=== PATIENT | female | born 1970 | race Caucasian/White ===

== ENCOUNTER → 2020-11-21 15:01 | Outpatient (BNVA) | payer OTHER, SELFPAY | PROVIDERS: Visit Provider Emergency Medicine | DX: Z20.822 Contact with and (suspected) exposure to COVID-19 (principal) | CPT/HCPCS: 87635 ==

== ENCOUNTER 2021-03-14 16:37 | Inpatient (IN) | payer OTHER, SELFPAY ==
[2021-03-14] VITALS (8 sets, daily range): BP systolic 114–144; BP diastolic 73–74; PULSE 66–98; RESP 18–30; TEMP 36.3–37.1; O2SAT 80–96; BMI 26.6
--- NOTE | 2021-03-14 16:52 | XRR_ITS ---
PROCEDURE INFORMATION: Exam: XR Chest Exam date and time: 03/14/2021 4:52 PM Age: 50 years old Clinical indication: Shortness of breath; Additional info: Dyspnea TECHNIQUE: Imaging protocol: XR of the chest. Views: 1 view. COMPARISON: No relevant prior studies available. FINDINGS: Lungs: Bibasilar atelectasis versus mild infiltrate. Pleural spaces: Unremarkable. No pleural effusion. No pneumothorax. Heart/Mediastinum: Cardiomegaly. Bones/joints: Unremarkable. XR/XR chest 1V portable [id number] IMPRESSION: 1. Cardiomegaly. 2. Bibasilar atelectasis versus mild infiltrate. Radiation Dose CTDIVOL = (mGy): DLP = (mGy-cm)
--- NOTE | 2021-03-14 16:53 | ECG_ITS ---
[facility] Test Date: 2021-03-14 Pat Name: Ana Lilia Joseph Department: Room: Gender: Female Evening Anchor: : 1970 Requested By: Jose Sue Order Number: [id number] Reading MD: MISTY WOLFF Measurements Intervals [place] Rate: 91 P: 19 [place]: 148 QRS: -1 QRSD: 71 T: 5 QT: 334 QTc: 412 Interpretive Statements SINUS RHYTHM LOW QRS VOLTAGE IN PRECORDIAL LEADS [QRS DEFLECTION < 1.0 mV IN CHEST LEADS] ST DEVIATION AND MODERATE T-WAVE ABNORMALITY, CONSIDER ANTERIOR ISCHEMIA [-0.1+ mV T-WAVE IN V3/V4] No previous ECG available for comparison Electronically Signed On 03-16-2021 0:11:27 CDT by MISTY WOLFF [id number] f
[2021-03-14] MEDS: ipratropium-albuterol 3 mL Neb INHALATION ×3 (17:10→17:11)
--- NOTE | 2021-03-14 17:13 | W.ED.GENADLT ---
Documented by User: Jose Sue MD 03/21/21 22:42 HPI - General Adult General: Chief complaint: Shortness of Breath/Dyspnea Stated complaint: TROUBLE BREATHING Time Seen by Provider: 03/14/21 16:52 History of Present Illness: HPI narrative: Patient is a 50-year-old female with a history of focal, COPD, recurrent pneumonia who presents the emergency room for 2 days of worsening dyspnea and wheezing. Patient tells me that she was at home when she noticed that she has worsening difficulty breathing and ear tightness. Patient denies any sputum,, fever but however report significant chills. Patient tells me that in the past whenever she has these episodes, she usually has pneumonia. Patient says that previously she was on home oxygen, is currently not on it. On arrival, patient was noted to be satting 80% on room air. Patient has not had her Covid vaccines yet. Patient has any chest pain, abdominal complaints, complaints at this time. Onset: 2 days acutely Duration:2 days Location:home Severity:moderate/severe Review of Systems Narrative: Constitutional: No fever, no chills. HEENT: No vision changes CV: No chest pain, no palpitations PULM: no cough, +dyspnea/wheezing GI: No abdominal pain, no N/V/D. : No dysuria MSKEL: No muscle pain SKIN: No new rashes, no lesions. NEURO: No headache, no focal weakness. HEME: No visible bruises PSYCH: Normal mood PFS ED PFSH: Medical History (Updated 03/18/21 @ 00:01 by ) COPD (chronic obstructive pulmonary disease) 5 History of stress test (~2004) negative, declined catheterization at time due to potential risks of procedure but reports doctors wanted to perform Hyperlipidemia Nicotine dependence, cigarettes, with other nicotine-induced disorders Surgical History (Updated 03/14/21 @ 20:56 by Dee Barba MD) History of hysterectomy Family History (Updated 03/14/21 @ 20:56 by Dee Barba MD) Father CAD (coronary artery disease) in his 60s from heart disease Mother Lung disease Social History (Updated 03/14/21 @ 20:57 by Dee Barba MD) Smoking and tobacco status: current every day smoker Alcohol intake: never Lives independently: Yes Household members: other Details: mother Physical Exam Narrative: EXAM NARRATIVE: Head: Atraumatic Eyes: PERRL, conjunctiva without injection ENT: Mucous membrane moist NECK: Supple, ROM intact LUNGS: + Lung tightness, plus bilateral wheezing, moderate accessory muscle use, patient speaking full sentences CV: RRR ABDOMEN: Soft, nontender in all quadrants EXTREMITY: Normal ROM SKIN: No rash or erythema NEURO: Awake and alert, no focal motor deficits PSYCH: Normal mood and affect Course Vital Signs: Vital signs: Vital Signs Temperature 97.9 F 03/17/21 15: Pulse Rate 54 L 03/17/21 15:01 Respiratory Rate 16 03/17/21 15: Blood Pressure 137/80 03/17/21 15: Pulse Oximetry 92 03/17/21 15:01 MDM - General Adult MDM Narrative: Medical decision making narrative: Patient is a 50-year-old female with history of COPD, pneumonia who presents the emergency room for evaluation acute dyspnea x2 days. On exam, patient satting at 80% on room air. Patient is noted to have tight airspace, plus wheezing bilaterally. Patient has mild increased work of breathing. Patient was placed immediately on 6 L oxygen with improvement in O2 sat to 95%. Work-up: CBC, BMP, proBNP, troponin, EKG, Covid, XR chest Intervention: DuoNeb, methylprednisolone Lab Data: Labs: Lab Results 03/14/21 03/14/21 03/14/21 17:06 17:06 17:06 WBC 17.4 10^3/uL H 10 ^3/uL (4.0-10.0) RBC 5.52 10^6/uL H 10 ^6/uL (4.1-5.3) Hgb 15.8 g/dL H g/dL (11.5-15.3) Hct 48.3 % H % (37.0-47.0) MCV 87.5 fl fl (81-99) MCH 28.6 pg pg (28.0-34.0) MCHC 32.7 g/dL g/dL (30.0-36.0) RDW 13.1 % % (12.1-15.1) Plt Count 372 10^3/cmm 10^3 /cmm (130-400) MPV 9.8 fL fL (7.4-10.4) Neut % (Auto) 70.7 % % Lymph % (Auto) 19.1 % % [place] % (Auto) 6.0 % % Eos % (Auto) 3.2 % % Baso % (Auto) 0.5 % % Neut # (Auto) 12.33 10^3/uL H 1 0^3/uL (1.8-7.7) Lymph # (Auto) 3.3 10^3/uL 10^3/ uL (0.8-4.8) [place] # (Auto) 1.0 10^3/uL H 10^ 3/uL (0.2-0.9) Eos # (Auto) 0.6 10^3/uL 10^3/ uL (0.0-0.8) Baso # (Auto) 0.1 10^3/uL 10^3/ uL (0.0-0.1) Nucleated RBC % (a uto) 0 % % Nucleated RBCs # 0.0 /100WBC /100W BC Specimen Type Sample Site ABG pH ABG pCO2 ABG pO2 ABG HCO3 ABG Base Excess Jose Alejandro Test Hematocrit O2 Delivery Device O2 Liters/Min Director Broadcast ID Sodium 139 mmol/L mmol/L (136-145) Potassium 4.1 mmol/L mmol/L (3.5-5.1) Chloride 101 mmol/L mmol/L (98-107) Carbon Dioxide 23 mmol/L mmol/L (22-29) Anion Gap 19.1 H (5-19) BUN 13 mg/dL mg/dL (6-20) Creatinine 0.5 mg/dL mg/dL (0.5-0.9) GFR Calculation 129.6 mL/min mL/m in (90-130) Glucose 103 mg/dL mg/dL (65-115) Calculated Osmolal ity 288 mOsm/kg mOsm/ kg (285-295) Lactic Acid Calcium 9.5 mg/dL mg/dL (8.5-10.5) Ferritin Troponin T Baselin e 7 ng/L ng/L (0-10) Troponin T 120 Min [place] Troponin T C-Reactive Protein NT-Pro-B Natriuret Pep 64 pg/mL pg/mL (0-125) Procalcitonin Nasal/Oral COVID-1 9 PCR SARS-CoV-2 RNA (RT -PCR) SARS-CoV-2 Ag (Rap id) 10/03/14/21 03/14/21 17:06 17:21 18:41 WBC RBC Hgb Hct MCV MCH MCHC RDW Plt Count MPV Neut % (Auto) Lymph % (Auto) [place] % (Auto) Eos % (Auto) Baso % (Auto) Neut # (Auto) Lymph # (Auto) [place] # (Auto) Eos # (Auto) Baso # (Auto) Nucleated RBC % (a uto) Nucleated RBCs # Specimen Type Arterial Sample Site Radial, left ABG pH 7.42 (7.35-7.45) ABG pCO2 39.1 mmHg mmHg (35-45) ABG pO2 38.3 mmHg L* mmHg (80.0-100.0) ABG HCO3 25.4 mmol/L mmol/ L (22-26) ABG Base Excess 0.9 mmol/L mmol/L (-2.0-2.0) Jose Alejandro Test Pos Hematocrit 48.6 % H % (37-47) O2 Delivery Device Nc O2 Liters/Min 6.0 % % Director Broadcast ID Cak Sodium Potassium Chloride Carbon Dioxide Anion Gap BUN Creatinine GFR Calculation Glucose Calculated Osmolal ity Lactic Acid Calcium Ferritin 147 ng/mL ng/mL (15-150) Troponin T Baselin e Troponin T 120 Min [place] Troponin T C-Reactive Protein 25.7 mg/L H mg/L (0.0-4.9) NT-Pro-B Natriuret Pep Procalcitonin 0.04 ng/mL ng/mL (0-0.5) Nasal/Oral COVID-1 9 PCR Cancelled SARS-CoV-2 RNA (RT -PCR) SARS-CoV-2 Ag (Rap id) 03/14/21 03/14/21 03/14/21 18:41 18:41 18:41 WBC RBC Hgb Hct MCV MCH MCHC RDW Plt Count MPV Neut % (Auto) Lymph % (Auto) [place] % (Auto) Eos % (Auto) Baso % (Auto) Neut # (Auto) Lymph # (Auto) [place] # (Auto) Eos # (Auto) Baso # (Auto) Nucleated RBC % (a uto) Nucleated RBCs # Specimen Type Sample Site ABG pH ABG pCO2 ABG pO2 ABG HCO3 ABG Base Excess Jose Alejandro Test Hematocrit O2 Delivery Device O2 Liters/Min Director Broadcast ID Sodium Potassium Chloride Carbon Dioxide Anion Gap BUN Creatinine GFR Calculation Glucose Calculated Osmolal ity Lactic Acid Calcium Ferritin Troponin T Baselin e Troponin T 120 Min [place] Troponin T C-Reactive Protein NT-Pro-B Natriuret Pep Procalcitonin Nasal/Oral COVID-1 9 PCR Not detected SARS-CoV-2 RNA (RT -PCR) Cancelled SARS-CoV-2 Ag (Rap id) Negative (Negative) 03/14/21 03/14/21 19:08 19:08 WBC RBC Hgb Hct MCV MCH MCHC RDW Plt Count MPV Neut % (Auto) Lymph % (Auto) [place] % (Auto) Eos % (Auto) Baso % (Auto) Neut # (Auto) Lymph # (Auto) [place] # (Auto) Eos # (Auto) Baso # (Auto) Nucleated RBC % (a uto) Nucleated RBCs # Specimen Type Sample Site ABG pH ABG pCO2 ABG pO2 ABG HCO3 ABG Base Excess Jose Alejandro Test Hematocrit O2 Delivery Device O2 Liters/Min Director Broadcast ID Sodium Potassium Chloride Carbon Dioxide Anion Gap BUN Creatinine GFR Calculation Glucose Calculated Osmolal ity Lactic Acid 2.5 mmol/L H mmol /L (0.5-2.2) Calcium Ferritin Troponin T Baselin e Troponin T 120 Min [place] 6.09 ng/L ng/L (0-10) Delta Troponin T -0.91 ABS# L ABS# (0-10) C-Reactive Protein NT-Pro-B Natriuret Pep Procalcitonin Nasal/Oral COVID-1 9 PCR SARS-CoV-2 RNA (RT -PCR) SARS-CoV-2 Ag (Rap id) Imaging Data^: Other Imaging: Radiologist's impression: [address] [id number] ReportSigned Patient: Jessica Joseph #: [id number]: 1970Acct#:[id number]/Sex: 50 / FADM Date: 03/14/21Loc: ERRoom/Bed:Attending Dr: Ordering Provider/Ordering MD: Jose Sue MD Date of Service: 03/14/21 Procedure(s): XR chest 1V portable [id number] Accession Number(s): [id number] Report Number: [id number] PROCEDURE INFORMATION: Exam: XR Chest Exam date and time: 03/14/2021 4:52 PM Age: 50 years old Clinical indication: Shortness of breath; Additional info: Dyspnea TECHNIQUE: Imaging protocol: XR of the chest. Views: 1 view. COMPARISON: No relevant prior studies available. FINDINGS: Lungs: Bibasilar atelectasis versus mild infiltrate. Pleural spaces: Unremarkable. No pleural effusion. No pneumothorax. Heart/Mediastinum: Cardiomegaly. Bones/joints: Unremarkable. XR/XR chest 1V portable [id number] IMPRESSION: 1. Cardiomegaly. 2. Bibasilar atelectasis versus mild infiltrate. Radiation Dose CTDIVOL = (mGy): DLP = (mGy-cm) Dictated By:Fernie Siu MDSigned By:Fernie Siu MDSigned Date/Time:03/14/21 1733DD/ 51 Discharge Plan Discharge Patient Disposition: Admitted As Inpatient Admit Provider: Dee Barba Clinical Impression: Acute dyspnea, Acute exacerbation of chronic obstructive pulmonary disease, Acute hypoxemic respiratory failure Condition: Stable Discharge Diet: Cardiac and Low Fat Discharge Activity: Resume usual activity Coding Level of Care Code ED Cement Handler for Chg Fwd Documented by User: Lawson Gonzales DO 03/14/21 21:14 HPI - General Adult General: Chief complaint: Shortness of Breath/Dyspnea Stated complaint: TROUBLE BREATHING Time Seen by Provider: 03/14/21 16:52 PFSH ED PFSH: Medical History (Updated 03/18/21 @ 00:01 by ) COPD (chronic obstructive pulmonary disease) 5 History of stress test (~2004) negative, declined catheterization at time due to potential risks of procedure but reports doctors wanted to perform Hyperlipidemia Nicotine dependence, cigarettes, with other nicotine-induced disorders Surgical History (Updated 03/14/21 @ 20:56 by Dee Barba MD) History of hysterectomy Family History (Updated 03/14/21 @ 20:56 by Dee Barba MD) Father CAD (coronary artery disease) in his 60s from heart disease Mother Lung disease Social History (Updated 03/14/21 @ 20:57 by Dee Barba MD) Smoking and tobacco status: current every day smoker Alcohol intake: never Lives independently: Yes Household members: other Details: mother Course Consultations: Consultation #1: willi Vital Signs: Vital signs: Vital Signs Temperature 97.9 F 03/17/21 15:01 Pulse Rate 54 L 03/17/21 15:01 Respiratory Rate 16 03/17/21 15:01 Blood Pressure 137/80 03/17/21 15:01 Pulse Oximetry 92 03/17/21 15:01 MDM - General Adult MDM Narrative: Medical decision making narrative: 50-year-old female checked out to me by Dr. Sue at shift change. This lady has a significant oxygen demand and she is tachycardic currently she is satting 93% on high flow nasal cannula. She is much more comfortable. Chest x-ray was negative, but CTA reveals groundglass infiltrates. No PE. She received Solu-Medrol here. Her rapid COVID-19 is negative, PCR is pending CT however is suspicious. She is a nonvaccinated patient she will be admitted for hypoxic respiratory failure pneumonitis Lab Data: Labs: Lab Results 03/14/21 03/14/21 03/14/21 17:06 17:06 17:06 WBC 17.4 10^3/uL H 10 ^3/uL (4.0-10.0) RBC 5.52 10^6/uL H 10 ^6/uL (4.1-5.3) Hgb 15.8 g/dL H g/dL (11.5-15.3) Hct 48.3 % H % (37.0-47.0) MCV 87.5 fl fl (81-99) MCH 28.6 pg pg (28.0-34.0) MCHC 32.7 g/dL g/dL (30.0-36.0) RDW 13.1 % % (12.1-15.1) Plt Count 372 10^3/cmm 10^3 /cmm (130-400) MPV 9.8 fL fL (7.4-10.4) Neut % (Auto) 70.7 % % Lymph % (Auto) 19.1 % % [place] % (Auto) 6.0 % % Eos % (Auto) 3.2 % % Baso % (Auto) 0.5 % % Neut # (Auto) 12.33 10^3/uL H 1 0^3/uL (1.8-7.7) Lymph # (Auto) 3.3 10^3/uL 10^3/ uL (0.8-4.8) [place] # (Auto) 1.0 10^3/uL H 10^ 3/uL (0.2-0.9) Eos # (Auto) 0.6 10^3/uL 10^3/ uL (0.0-0.8) Baso # (Auto) 0.1 10^3/uL 10^3/ uL (0.0-0.1) Nucleated RBC % (a uto) 0 % % Nucleated RBCs # 0.0 /100WBC /100W BC Specimen Type Sample Site ABG pH ABG pCO2 ABG pO2 ABG HCO3 ABG Base Excess Jose Alejandro Test Hematocrit O2 Delivery Device O2 Liters/Min Director Broadcast ID Sodium 139 mmol/L mmol/L (136-145) Potassium 4.1 mmol/L mmol/L (3.5-5.1) Chloride 101 mmol/L mmol/L (98-107) Carbon Dioxide 23 mmol/L mmol/L (22-29) Anion Gap 19.1 H (5-19) BUN 13 mg/dL mg/dL (6-20) Creatinine 0.5 mg/dL mg/dL (0.5-0.9) GFR Calculation 129.6 mL/min mL/m in (90-130) Glucose 103 mg/dL mg/dL (65-115) Calculated Osmolal ity 288 mOsm/kg mOsm/ kg (285-295) Lactic Acid Calcium 9.5 mg/dL mg/dL (8.5-10.5) Ferritin Troponin T Baselin e 7 ng/L ng/L (0-10) Troponin T 120 Min [place] Troponin T C-Reactive Protein NT-Pro-B Natriuret Pep 64 pg/mL pg/mL (0-125) Procalcitonin Nasal/Oral COVID-1 9 PCR SARS-CoV-2 RNA (RT -PCR) SARS-CoV-2 Ag (Rap id) 10/03/14/21 03/14/21 17:06 17:21 18:41 WBC RBC Hgb Hct MCV MCH MCHC RDW Plt Count MPV Neut % (Auto) Lymph % (Auto) [place] % (Auto) Eos % (Auto) Baso % (Auto) Neut # (Auto) Lymph # (Auto) [place] # (Auto) Eos # (Auto) Baso # (Auto) Nucleated RBC % (a uto) Nucleated RBCs # Specimen Type Arterial Sample Site Radial, left ABG pH 7.42 (7.35-7.45) ABG pCO2 39.1 mmHg mmHg (35-45) ABG pO2 38.3 mmHg L* mmHg (80.0-100.0) ABG HCO3 25.4 mmol/L mmol/ L (22-26) ABG Base Excess 0.9 mmol/L mmol/L (-2.0-2.0) Jose Alejandro Test Pos Hematocrit 48.6 % H % (37-47) O2 Delivery Device Nc O2 Liters/Min 6.0 % % Director Broadcast ID Cak Sodium Potassium Chloride Carbon Dioxide Anion Gap BUN Creatinine GFR Calculation Glucose Calculated Osmolal ity Lactic Acid Calcium Ferritin 147 ng/mL ng/mL (15-150) Troponin T Baselin e Troponin T 120 Min [place] Troponin T C-Reactive Protein 25.7 mg/L H mg/L (0.0-4.9) NT-Pro-B Natriuret Pep Procalcitonin 0.04 ng/mL ng/mL (0-0.5) Nasal/Oral COVID-1 9 PCR Cancelled SARS-CoV-2 RNA (RT -PCR) SARS-CoV-2 Ag (Rap id) 03/14/21 03/14/21 03/14/21 18:41 18:41 18:41 WBC RBC Hgb Hct MCV MCH MCHC RDW Plt Count MPV Neut % (Auto) Lymph % (Auto) [place] % (Auto) Eos % (Auto) Baso % (Auto) Neut # (Auto) Lymph # (Auto) [place] # (Auto) Eos # (Auto) Baso # (Auto) Nucleated RBC % (a uto) Nucleated RBCs # Specimen Type Sample Site ABG pH ABG pCO2 ABG pO2 ABG HCO3 ABG Base Excess Jose Alejandro Test Hematocrit O2 Delivery Device O2 Liters/Min Director Broadcast ID Sodium Potassium Chloride Carbon Dioxide Anion Gap BUN Creatinine GFR Calculation Glucose Calculated Osmolal ity Lactic Acid Calcium Ferritin Troponin T Baselin e Troponin T 120 Min [place] Troponin T C-Reactive Protein NT-Pro-B Natriuret Pep Procalcitonin Nasal/Oral COVID-1 9 PCR Not detected SARS-CoV-2 RNA (RT -PCR) Cancelled SARS-CoV-2 Ag (Rap id) Negative (Negative) 03/14/21 03/14/21 19:08 19:08 WBC RBC Hgb Hct MCV MCH MCHC RDW Plt Count MPV Neut % (Auto) Lymph % (Auto) [place] % (Auto) Eos % (Auto) Baso % (Auto) Neut # (Auto) Lymph # (Auto) [place] # (Auto) Eos # (Auto) Baso # (Auto) Nucleated RBC % (a uto) Nucleated RBCs # Specimen Type Sample Site ABG pH ABG pCO2 ABG pO2 ABG HCO3 ABG Base Excess Jose Alejandro Test Hematocrit O2 Delivery Device O2 Liters/Min Director Broadcast ID Sodium Potassium Chloride Carbon Dioxide Anion Gap BUN Creatinine GFR Calculation Glucose Calculated Osmolal ity Lactic Acid 2.5 mmol/L H mmol /L (0.5-2.2) Calcium Ferritin Troponin T Baselin e Troponin T 120 Min [place] 6.09 ng/L ng/L (0-10) Delta Troponin T -0.91 ABS# L ABS# (0-10) C-Reactive Protein NT-Pro-B Natriuret Pep Procalcitonin Nasal/Oral COVID-1 9 PCR SARS-CoV-2 RNA (RT -PCR) SARS-CoV-2 Ag (Rap id) Discharge Plan Discharge Patient Disposition: Admitted As Inpatient Admit Provider: Dee Barba Clinical Impression: Acute dyspnea, Acute exacerbation of chronic obstructive pulmonary disease, Acute hypoxemic respiratory failure Condition: Stable Discharge Diet: Cardiac and Low Fat Discharge Activity: Resume usual activity Coding Level of Care Code ED Cement Handler for Luciag Annette
--- NOTE | 2021-03-14 17:24 | CTR_ITS ---
PROCEDURE INFORMATION: Exam: CTA Chest With Contrast Exam date and time: 03/14/2021 5:24 PM Age: 50 years old Clinical indication: Shortness of breath; Patient HX: SOB and tachy; Additional info: Pe TECHNIQUE: Imaging protocol: Computed tomographic angiography of the chest with contrast. 3D rendering (Not supervised by radiologist): MIP and/or 3D reconstructed images were created by the technologist. Radiation optimization: All CT scans at this facility use at least one of these dose optimization techniques: automated exposure control; mA and/or kV adjustment per patient size (includes targeted exams where dose is matched to clinical indication); or iterative reconstruction. Contrast material: OMNI 350; Contrast volume: 66 ml; Contrast route: INTRAVENOUS (IV); COMPARISON: CR (CHEST, ) 03/14/2021 5:03 PM RADIATION DOSE METRICS: Total DLP (mGy-cm): 511.46 FINDINGS: Pulmonary arteries: Normal. No pulmonary emboli. Aorta: Unremarkable. No aortic aneurysm. No aortic dissection. Lungs: Multifocal bilateral pulmonary ground-glass opacities. Pleural spaces: Unremarkable. No pneumothorax. No pleural effusion. Heart: Unremarkable. No cardiomegaly. No pericardial effusion. Lymph nodes: Unremarkable. No enlarged lymph nodes. Bones/joints: Unremarkable. No acute fracture. Soft tissues: Unremarkable. CT/CT angio chest PE protcl [id number] IMPRESSION: There are multifocal bilateral pulmonary ground-glass opacities.Imaging features can be seen with COVID-19 pneumonia, though are nonspecific and can occur with a variety of infectious and noninfectious processes. (Reference: Alistair) REFERENCES: Alistair Lambert, et al., Radiological Society of [place] Expert Consensus Statement on Reporting Chest CT Findings Related to COVID-19. Endorsed by the Society of Thoracic Radiology, the [place], and RSNA. Published August 08, 2019. Radiation Dose CTDIVOL = (mGy): DLP = 511.46 (mGy-cm)
[2021-03-14 17:31] LABS: Basophils # 0.1 10^3/uL (0.0-0.1); Basophils % 0.5 %; Eosinophils # 0.6 10^3/uL (0.0-0.8); Eosinophils % 3.2 %; Hematocrit 48.3 % (37.0-47.0); Hemoglobin 15.8 g/dL (11.5-15.3); Lymphocytes # 3.3 10^3/uL (0.8-4.8); Lymphocytes % 19.1 %; Mean Corpuscular HGB Conc 32.7 g/dL (30.0-36.0); Mean Corpuscular Hemoglobin 28.6 pg (28.0-34.0); Mean Corpuscular Volume 87.5 fl (81-99); Mean Platelet Volume 9.8 fL (7.4-10.4); Neutrophils # 12.33 10^3/uL (1.8-7.7); Neutrophils % 70.7 %; Nucleated Red Blood Cells % 0 %; Platelet Count 372 10^3/cmm (130-400); Red Blood Count 5.52 10^6/uL (4.1-5.3); Red Cell Distribution Width 13.1 % (12.1-15.1); White Blood Count 17.4 10^3/uL (4.0-10.0)
[2021-03-14 17:32] LABS: ABG PCO2 39.1 mmHg (35-45); ABG PH Result 7.42 (7.35-7.45); Arterial Blood Gas Hematocrit 48.6 % (37-47); Base Excess ABG 0.9 mmol/L (-2.0-2.0); Blood Gas Allen Test Pos; Blood Gas Operator Identificat CAK; Blood Gas Sample Site Radial, left; Blood Gas Sample Type Arterial; HCO3 ABG 25.4 mmol/L (22-26); Oxygen Device NC; PO2 ABG 38.3 mmHg (80.0-100.0)
[2021-03-14 17:48] LABS: Troponin(5th) Baseline 7 ng/L (0-10)
[2021-03-14 17:57] LABS: Blood Urea Nitrogen 13 mg/dL (6-20); Calcium 9.5 mg/dL (8.5-10.5); Carbon Dioxide 23 mmol/L (22-29); Chloride 101 mmol/L (98-107); Glomerular Filtration Rate 129.6 mL/min (90-130); Glucose 103 mg/dL (65-115); NT Pro B Type Natriuretic Pept 64 pg/mL (0-125); Osmolality Calculated 288 mOsm/kg (285-295); Sodium 139 mmol/L (136-145)
[2021-03-14] MEDS: iohexol 350 mg/mL 100 mL Btl IV (18:16)
[2021-03-14 18:20] LABS: Anion Gap 19.1 (5-19); Potassium 4.1 mmol/L (3.5-5.1)
--- NOTE | 2021-03-14 18:53 | ECG_ITS ---
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: : 1970 Requested By: Jose Sue Order Number: [id number] Reading MD: MISTY WOLFF Measurements Intervals [place] Rate: 85 P: 37 AR: 174 QRS: -1 QRSD: 75 T: 19 QT: 372 QTc: 444 Interpretive Statements SINUS RHYTHM POSSIBLE INFERIOR MYOCARDIAL INFARCTION , PROBABLY OLD [30 ms Q WAVE IN II/aVF] MODERATE T-WAVE ABNORMALITY, CONSIDER ANTERIOR ISCHEMIA [-0.1+ mV T-WAVE IN V3/V4] Compared to ECG 03/14/2021 17:22:14 Myocardial infarct finding now present T-wave abnormality still present Possible ischemia still present Electronically Signed On 03-16-2021 0:17:33 CDT by MISTY WOLFF [id number]
[2021-03-14 19:08] LABS: SARS Covid-2 Antigen Negative (Negative)
[2021-03-14 19:32] LABS: Troponin 5 2HR 6.09 ng/L (0-10)
[2021-03-14 19:33] LABS: Troponin 5 2HR Delta -0.91 ABS# (0-10)
[2021-03-14 19:34] LABS: Lactic Sepsis W/Reflex 2.5 mmol/L (0.5-2.2)
--- NOTE | 2021-03-14 19:55 | PM.HP ---
Providers/Chief Complaint Admitting Physician: Dee Barba Primary Care Provider: None Chief Complaint: TROUBLE BREATHING History of Present Illness Ana Lilia Joseph is a 50 year old female who presented to the emergency room with chief complaint of increasing difficulty breathing. Symptoms have been present for a couple of months. She thought she may have had Covid in November but Covid testing was negative. She has had increasing difficulty breathing, wheezing and cough most of the time unproductive since then. It has progressively worsened over the last week or 2 to the point that she was not able to function well at work. She works at [employer] in [employer]. She feels like she has chest congestion but is not able to cough much of anything up. She has had some posttussive emesis that has been productive primarily of thick mucousy material along with bile. No blood has been noted. She has had some subjective fevers, general malaise, body aches and fatigue. She has a history of COPD and at one point in time I been told that she needed home oxygen but did not think that she really did. She has been on Symbicort and albuterol in the past. She does not currently have a primary care provider. Upon presentation to the emergency room she was significantly hypoxic with saturations in the 80s. ABG showed a PO2 of 38. pH was 7.42. She received breathing treatment and steroids. Chest x-ray showed some mild opacities. CTA of the chest did not reveal evidence of PE but she was found to have bilateral groundglass opacities. Rapid Covid was negative. She has not had a Covid vaccine. She has been treated with heated high flow with improvement in saturations. She is being admitted for further treatment and evaluation as indicated. Rapid Covid antigen was sent. She does not have any known Covid contacts. She lives in [place] with her mother. Her mother is not currently ill but does have chronic breathing problems. Review of Systems Const: Reports: fever(s), body aches, fatigue and malaise ENMT: Reports: dry mouth and nasal congestion; Denies: throat pain Card: Denies: chest pain, palpitations or edema Resp: Reports: dyspnea, non-productive cough, wheezing and chest congestion; Denies: productive cough, pain on inspiration or hemoptysis GI: Reports: nausea (post tussive) and vomiting (posttussive); Denies: abdominal pain, diarrhea, constipation or hematochezia : Denies: difficulty voiding Musc: Reports: other (various aches and pains, nothing acute) Skin/Breast: Denies: rash, pruritus or sores Neuro: Reports: headache(s); Denies: sensory changes or difficulty walking Psych: Reports: anxiety (with breathing difficulty) Chon/Lymph: Denies: easy bruising or easy bleeding Medications/Allergies Home Medications Medication Instructions Recorded Confirmed Last Taken Type No Known Home Medications 11/21/20 11/21/20 Unknown History Allergies Allergy/AdvReac Type Severity Reaction Status Date / Time aspirin Allergy Unknown Verified 11/21/20 13:46 Penicillins Allergy rash Verified 11/21/20 13:46 PFSH Acute PFSH: Medical History (Updated 03/14/21 @ 21:11 by Dee Barba MD) COPD (chronic obstructive pulmonary disease) 5 History of stress test (~2004) negative, declined catheterization at time due to potential risks of procedure but reports doctors wanted to perform Hyperlipidemia Nicotine dependence, cigarettes, with other nicotine-induced disorders Surgical History (Updated 03/14/21 @ 20:56 by Dee Barba MD) History of hysterectomy Family History (Updated 03/14/21 @ 20:56 by Dee Barba MD) Father CAD (coronary artery disease) in his 60s from heart disease Mother Lung disease Social History (Updated 03/14/21 @ 20:57 by Dee Barba MD) Smoking and tobacco status: current every day smoker Alcohol intake: never Substance/Drug Use: never Lives independently: Yes Household members: other Details: mother Vitals/I&O/Wt Last Vital Signs Temp 98.1 F 03/14/21 18:44 Pulse 74 03/14/21 18:44 Resp 22 H 03/14/21 18:44 Pulse Ox 93 03/14/21 18:44 Weight last 48 hrs Weight 77.111 kg Physical Exam Narrative: EXAM NARRATIVE: Constitutional: Awake and alert, cooperative, able to provide history HEENT: Normocephalic, atraumatic, pupils are equal, extraocular mitts intact, oropharynx is dry, heated high flow is in place Neck: Supple Respiratory: Bilateral wheezes and scattered crackles, no accessory muscle use noted Cardiovascular: Regular rate and rhythm, no murmurs Abdomen: Soft, nontender, positive bowel sounds Extremities: No pitting edema or calf tenderness Skin: Dry, no rashes Neuro: Speech clear, face symmetric, moves all extremities Psych: Normal affect Data : 03/14/21 17:06 03/14/21 17:06 Other Labs: Laboratory Results WBC 17.4 10^3/uL (4.0-10.0) H 03/14/21 17:06 RBC 5.52 10^6/uL (4.1-5.3) H 03/14/21 17:06 Hgb 15.8 g/dL (11.5-15.3) H 03/14/21 17:06 Hct 48.3 % (37.0-47.0) H 03/14/21 17:06 MCV 87.5 fl (81-99) 03/14/21 17:06 MCH 28.6 pg (28.0-34.0) 03/14/21 17:06 MCHC 32.7 g/dL (30.0-36.0) 03/14/21 17:06 RDW 13.1 % (12.1-15.1) 03/14/21 17:06 Plt Count 372 10^3/cmm (130-400) 03/14/21 17:06 MPV 9.8 fL (7.4-10.4) 03/14/21 17:06 Neut % (Auto) 70.7 % 03/14/21 17:06 Lymph % (Auto) 19.1 % 03/14/21 17:06 [place] % (Auto) 6.0 % 03/14/21 17:06 Eos % (Auto) 3.2 % 03/14/21 17:06 Baso % (Auto) 0.5 % 03/14/21 17:06 Neut # (Auto) 12.33 10^3/uL (1.8-7.7) H 03/14/21 17:06 Lymph # (Auto) 3.3 10^3/uL (0.8-4.8) 03/14/21 17:06 [place] # (Auto) 1.0 10^3/uL (0.2-0.9) H 03/14/21 17:06 Eos # (Auto) 0.6 10^3/uL (0.0-0.8) 03/14/21 17:06 Baso # (Auto) 0.1 10^3/uL (0.0-0.1) 03/14/21 17:06 Nucleated RBC % (auto) 0 % 03/14/21 17:06 Nucleated RBCs # 0.0 /100WBC 03/14/21 17:06 Specimen Type Arterial 03/14/21 17:21 Sample Site Radial, left 03/14/21 17:21 ABG pH 7.42 (7.35-7.45) 03/14/21 17:21 ABG pCO2 39.1 mmHg (35-45) 03/14/21 17:21 ABG pO2 38.3 mmHg (80.0-100.0) L* 03/14/21 17: ABG HCO3 25.4 mmol/L (22-26) 03/14/21 17:21 ABG Base Excess 0.9 mmol/L (-2.0-2.0) 03/14/21 17:21 Jose Alejandro Test Pos 03/14/21 17:21 Hematocrit 48.6 % (37-47) H 03/14/21 17:21 O2 Delivery Device Nc 03/14/21 17:21 O2 Liters/Min 6.0 % 03/14/21 17:21 Fixed Interest Dealer ID Cak 03/14/21 17:21 Sodium 139 mmol/L (136-145) 03/14/21 17:06 Potassium 4.1 mmol/L (3.5-5.1) 03/14/21 17:06 Chloride 101 mmol/L (98-107) 03/14/21 17:06 Carbon Dioxide 23 mmol/L (22-29) 03/14/21 17:06 Anion Gap 19.1 (5-19) H 03/14/21 17:06 BUN 13 mg/dL (6-20) 03/14/21 17:06 Creatinine 0.5 mg/dL (0.5-0.9) 03/14/21 17:06 GFR Calculation 129.6 mL/min (90-130) 03/14/21 17:06 Glucose 103 mg/dL (65-115) 03/14/21 17:06 Calculated Osmolality 288 mOsm/kg (285-295) 03/14/21 17:06 Lactic Acid 2.5 mmol/L (0.5-2.2) H 03/14/21 19:08 Calcium 9.5 mg/dL (8.5-10.5) 03/14/21 17:06 Troponin T Baseline 7 ng/L (0-10) 03/14/21 17:06 Troponin T 120 Minute 6.09 ng/L (0-10) 03/14/21 19:08 Delta Troponin T -0.91 ABS# (0-10) L 03/14/21 19:08 NT-Pro-B Natriuret Pep 64 pg/mL (0-125) 03/14/21 17:06 SARS-CoV-2 Ag (Rapid) Negative (Negative) 03/14/21 18:41 Impressions Chest X-Ray 03/14/21 16:52 IMPRESSION: 1. Cardiomegaly. 2. Bibasilar atelectasis versus mild infiltrate. Radiation Dose CTDIVOL = (mGy): DLP = (mGy-cm) Chest CTA 03/14/21 17:24 IMPRESSION: There are multifocal bilateral pulmonary ground-glass opacities.Imaging features can be seen with COVID-19 pneumonia, though are nonspecific and can occur with a variety of infectious and noninfectious processes. (Reference: Alistair) REFERENCES: Alitsair Lambert, et al., Radiological Society of [place] Expert Consensus Statement on Reporting Chest CT Findings Related to COVID-19. Endorsed by the Society of Thoracic Radiology, the [place] [employer], and RSNA. Published August 08, 2019. Radiation Dose CTDIVOL = (mGy): DLP = 511.46 (mGy-cm) Micro: Microbiology 03/14/21 19:08 Blood Culture - Preliminary Blood SPECIMEN COLLECTED 03/14/21 17:06 Blood Culture - Preliminary Blood SPECIMEN COLLECTED A&P Assessment and plan (1) Acute hypoxemic respiratory failure: Symptoms have been developing over the last couple of months and have acutely worsened in the last few days to the point that she has been unable to work. She has had some subjective fevers, difficult expectoration with primarily nonproductive cough, posttussive emesis, general aches and pains and malaise. Rapid Covid antigen is negative. She has groundglass opacities bilaterally which could be suggestive of Covid however she has leukocytosis without a lymphopenia. Symptoms have also been escalating over a couple of months. She is not Covid vaccinated and has not tested positive for Covid previously. Differential includes Covid or other viral infection and bacterial pneumonia, Legionella, among others. With unremarkable EKG, troponin and BNP do not currently suspect cardiac etiology of presentation. CTA was negative for PE. Status: Acute (2) Pneumonia: Patient reports that she gets pneumonia annually Status: Acute Qualifiers: Pneumonia type: due to unspecified organism Laterality: bilateral Lung location: lower lobe of lung Qualified Code(s): J18.9 - Pneumonia, unspecified organism (3) Acute exacerbation of chronic obstructive pulmonary disease: Status: Acute (4) Nicotine dependence, cigarettes, with other nicotine-induced disorders: Status: Acute (5) Hyperlipidemia: Status: Chronic Qualifiers: Hyperlipidemia type: unspecified Qualified Code(s): E78.5 - Hyperlipidemia, unspecified Additional A&P Information Mild lactic acid elevation, likely secondary to hypoxemia given clinical presentation Inpatient admission Continue heated high flow oxygen, weaning as able Rapid Covid was negative, Covid PCR has been sent Covid isolation until PCR is back Levaquin Systemic steroids Breathing treatments with inhaled steroids Flutter device Blood cultures were collected Check procalcitonin, CRP, ferritin and Legionella Nicotine patch if needed Check lipid panel since she reports a history of hyperlipidemia and has not seen a doctor for a couple of years Complete serial cardiac enzymes Lovenox for DVT prophylaxis Pepcid for GI prophylaxis Nicotine patch if needed Supportive care otherwise Anticipate will need oxygen upon disposition but otherwise disposition likely home Plans, findings and concerns including the possibility of Covid diagnosis among other types of pneumonia were discussed with patient and she was given an opportunity to ask questions Attestations Medical Necessity Statement*: Anticipated stay greater than 2 midnights in this patient presenting with increasing difficulty breathing over period of time to the point that she was unable to go to work. She was significantly hypoxic and is currently requiring heated high flow. Coding Level of Care Code Acute Clinical Informatics Manager for [facility] Diagnoses Acute hypoxemic respiratory failure J96.01 Pneumonia J18.9 Pneumonia type: due to unspecified organism Laterality: bilateral Lung location: lower lobe of lung Acute exacerbation of chronic obstructive pulmonary disease J44.1 Nicotine dependence, cigarettes, with other nicotine-induced disorders F17.218 Hyperlipidemia E78.5 Hyperlipidemia type: unspecified
[2021-03-14 20:58] LABS: Reflex Lactate Order REFLEX LACTIC ORDERD
--- NOTE | 2021-03-14 21:04 | PC.NURSE ---
tried to call report, RN not available
[2021-03-14 21:09] LABS: C Reactive Protein 25.7 mg/L (0.0-4.9); Ferritin 147 ng/mL (15-150)
[2021-03-14 21:14] LABS: Procalcitonin 0.04 ng/mL (0-0.5)
[2021-03-14] MEDS: levofloxacin-dextrose 5 % 750 MG/150 ML PREMIX 100 MG IV (21:32)
[2021-03-14] MEDS: enoxaparin 40 mg/0.4 mL Syringe SUBCUT (22:51)
--- NOTE | 2021-03-14 22:53 | ECG_ITS ---
[facility] Test Date: 2021-03-14 Pat Name: Ana Lilia Joseph Department: Room: 258 Gender: Female Operations [employer]: : 1970 Requested By: Jose Sue Order Number: [id number] Reading MD: MISTY WOLFF Measurements Intervals [place] Rate: 62 P: 38 IL: 176 QRS: 5 QRSD: 75 T: 15 QT: 454 QTc: 462 Interpretive Statements SINUS RHYTHM WITH SINUS ARRHYTHMIA NONSPECIFIC ST & T-WAVE ABNORMALITY Compared to ECG 03/14/2021 18:47:17 Myocardial infarct finding no longer present Possible ischemia no longer present T-wave abnormality still present Electronically Signed On 03-16-2021 0:16:58 CDT by MISTY WOLFF [id number]
[2021-03-15] VITALS (13 sets, daily range): BP systolic 101–128; BP diastolic 57–68; PULSE 56–94; RESP 16–22; TEMP 35.8–36.7; O2SAT 89–98
[2021-03-15] MEDS: ipratropium-albuterol 3 mL Neb INHALATION ×4 (03:18→21:40)
[2021-03-15 06:59] LABS: Basophils % 0.1 %; Hematocrit 44.6 % (37.0-47.0); Hemoglobin 14.5 g/dL (11.5-15.3); Lymphocytes # 1.1 10^3/uL (0.8-4.8); Lymphocytes % 11.3 %; Mean Corpuscular HGB Conc 32.5 g/dL (30.0-36.0); Mean Corpuscular Hemoglobin 29.1 pg (28.0-34.0); Mean Corpuscular Volume 89.4 fl (81-99); Mean Platelet Volume 9.5 fL (7.4-10.4); Monocytes # 0.2 10^3/uL (0.2-0.9); Monocytes % 1.7 %; Neutrophils # 8.37 10^3/uL (1.8-7.7); Neutrophils % 86.4 %; Nucleated Red Blood Cells % 0 %; Platelet Count 332 10^3/cmm (130-400); Red Blood Count 4.99 10^6/uL (4.1-5.3); Red Cell Distribution Width 13.2 % (12.1-15.1); White Blood Count 9.7 10^3/uL (4.0-10.0)
[2021-03-15 07:26] LABS: Chol HDL Ratio 5.23 mg/dL (0.0-4.40); Cholesterol 230 mg/dL (0-200); HDL Cholesterol 44 mg/dL (60-100); LDL Cholesterol Calculated 164 mg/dL (50-129); LDL HDL Ratio 3.73 RATIO (0.00-3.22); Triglycerides 111 mg/dL (0-150)
[2021-03-15 07:27] LABS: Anion Gap 17.2 (5-19); Blood Urea Nitrogen 13 mg/dL (6-20); Calcium 9.4 mg/dL (8.5-10.5); Carbon Dioxide 22 mmol/L (22-29); Chloride 102 mmol/L (98-107); Glucose 248 mg/dL (65-115); Osmolality Calculated 292 mOsm/kg (285-295); Potassium 4.2 mmol/L (3.5-5.1); Sodium 137 mmol/L (136-145)
[2021-03-15] MEDS: budesonide 0.5 mg/2 mL Neb INHALATION ×2 (08:36→21:40)
[2021-03-15] MEDS: famotidine 20 mg Tablet PO ×2 (10:50→17:16)
--- NOTE | 2021-03-15 21:06 | P.PN_ITS ---
Subjective Subjective: Interval history: Persistent hypoxia, desaturating to 87% on room air when to call for oxygen. Was patient return home, but agrees that should stay to complete work-up and treatment given new unexplained hypoxia, with history of recurrent pneumonias, protracted pulmonary problems. Has not seen a specialist in about 2 years, previously diagnosed by pulmonology with COPD per discussed with her grandmother specialist with CT angiogram indicated there is likely more going on than just the COPD. For now etiology not yet explained. Vitals/I&O/Wt Last Vital Signs Temp 97.7 F 03/15/21 20:00 Pulse 94 03/15/21 20:00 Resp 22 H 03/15/21 20:00 BP 117/57 03/15/21 20:00 Pulse Ox 89 L 03/15/21 20:00 03/15/21 03/15/21 03/15/21 06:59 14:59 22:59 Intake Total 390 / 390 240 / 240 240 / 480 Output Total 450 / 450 Balance -60 / -60 240 / 240 240 / 480 Weight last 48 hrs Weight 77.111 kg Physical Exam 2 Narrative: EXAM NARRATIVE: Sitting up in chair, bottom half dressed in street clothes. Const: COMMON NORMALS: no acute distress, patient oriented x3 and alert GENERAL APPEARANCE: cooperative ORIENTATION/CONSCIOUSNESS: Yes awake HENMT: COMMON NORMALS: oropharynx normal Neck/C-Spine: COMMON NORMALS: no JVD Resp: COMMON NORMALS: normal respiratory effort AUSCULTATION: wheezes and diminished lung sounds Cardio: COMMON NORMALS: no JVD, regular rhythm, S1 normal heart sound present, S2 normal heart sound present and No murmurs present (Cardio) RHYTHM: regular rhythm HEART SOUNDS: S1 normal heart sound present and S2 normal heart sound present GI: COMMON NORMALS: Normal to inspection, nondistended, normoactive bowel sounds present, Soft to palpation and non-tender PALPATION: Yes Soft to palpation Extremity: COMMON NORMALS: no joint enlargement and no pedal edema Neuro: COMMON NORMALS: patient oriented x3 and moves all extremities SENSORIUM/ORIENTATION: Yes alert Skin: COMMON NORMALS: no rashes or lesions noted GENERAL SKIN EXAM: no rashes or lesions noted Data : 03/15/21 06:37 03/15/21 06:37 Micro: Microbiology 03/14/21 19:08 Blood Culture - Preliminary Blood NEGATIVE TO DATE 03/14/21 17:06 Blood Culture - Preliminary Blood NEGATIVE TO DATE A&P Assessment and plan (1) Acute hypoxemic respiratory failure: Somewhat progressive symptoms, and reports history of recurrent pneumonias. Has not been to see the upholstery auto trimmer in 2 years. Previously diagnosed only with COPD. Discussed with her groundglass opacities, suspect these may be related to additional underlying process other than COPD. Currently pending additional work-up. Follow-up COVID-19 PCR. Requested urine bacterial antigens. Respiratory viral panel. Add galactomannan. Histoplasma antibody. Fungitell. With somewhat subacute/progressive onset, recurrent symptoms, discussed consideration if current presentation not explained by COVID-19 and other work- up currently in progress, of possible interstitial lung disease, hypersensitivity pneumonitis, additional possible etiologies for which may michelle efit from assessment by pulmonology, possibly during this admission depending on condition and if we are not finding good explanation for her symptoms. Empirically on Levaquin for now, although afebrile, without definitive consolidation and with normal procalcitonin. If alternative explanation becomes more likely, consider de-escalation. With component of COPD exacerbation, on steroids, nebs, inhaled steroid. Symptoms have been developing over the last couple of months and have acutely worsened in the last few days to the point that she has been unable to work. She has had some subjective fevers, difficult expectoration with primarily nonproductive cough, posttussive emesis, general aches and pains and malaise. Rapid Covid antigen is negative. She has groundglass opacities bilaterally which could be suggestive of Covid however she has leukocytosis without a lymphopenia. She is not Covid vaccinated and has not tested positive for Covid previously. Differential includes Covid or other viral infection and bacterial pneumonia, Legionella, among others. With unremarkable EKG, troponin and BNP do not currently suspect cardiac etiology of presentation. CTA was negative for PE. Status: Acute (2) Pneumonia: Patient reports that she gets pneumonia annually Status: Acute Qualifiers: Laterality: bilateral Lung location: lower lobe of lung Pneumonia type: due to unspecified organism Qualified Code(s): J18.9 - Pneumonia, unspecified organism (3) Acute exacerbation of chronic obstructive pulmonary disease: Status: Acute (4) Nicotine dependence, cigarettes, with other nicotine-induced disorders: Add nicotine lozenges Status: Acute (5) Hyperlipidemia: Status: Chronic Qualifiers: Hyperlipidemia type: unspecified Qualified Code(s): E78.5 - Hyperlipidemia, unspecified Attestations Medical Necessity Statement*: Continue admission for assessment management of new hypoxia, progressive atypical pneumonia. Coding Level of Care Code Acute [employer] Consultant for [facility] Fwd Exam Comprehensive Diagnoses Acute hypoxemic respiratory failure J96.01 Pneumonia J18.9 Laterality: bilateral Lung location: lower lobe of lung Pneumonia type: due to unspecified organism Acute exacerbation of chronic obstructive pulmonary disease J44.1 Nicotine dependence, cigarettes, with other nicotine-induced disorders F17.218 Hyperlipidemia E78.5 Hyperlipidemia type: unspecified
[2021-03-15] MEDS: levofloxacin-dextrose 5 % 750 MG/150 ML PREMIX 100 MG IV (22:27)
[2021-03-15] MEDS: enoxaparin 40 mg/0.4 mL Syringe SUBCUT (22:27)
[2021-03-16] VITALS (10 sets, daily range): BP systolic 106–118; BP diastolic 61–84; PULSE 56–81; RESP 14–18; TEMP 36.7–37; O2SAT 90–94
[2021-03-16] MEDS: ipratropium-albuterol 3 mL Neb INHALATION ×4 (03:32→20:43)
[2021-03-16 06:56] LABS: Alanine Aminotransferase 9 U/L (0-33); Albumin Level 3.6 g/dL (3.5-5.2); Alkaline Phosphatase 90 IU/L (35-105); Anion Gap 15.1 (5-19); Aspartate Amino Transferase 6 U/L (0-32); Blood Urea Nitrogen 22 mg/dL (6-20); Calcium 9.3 mg/dL (8.5-10.5); Carbon Dioxide 22 mmol/L (22-29); Chloride 104 mmol/L (98-107); Globulin 2.5 g/dL (1.3-4.6); Glucose 191 mg/dL (65-115); Osmolality Calculated 292 mOsm/kg (285-295); Potassium 4.1 mmol/L (3.5-5.1); Sodium 137 mmol/L (136-145); Total Bilirubin 0.2 mg/dL (0.15-1.2); Total Protein 6.1 g/dL (6.6-8.7)
[2021-03-16 07:28] LABS: Basophils % 0.1 %; Hematocrit 44.4 % (37.0-47.0); Hemoglobin 13.9 g/dL (11.5-15.3); Lymphocytes # 1.7 10^3/uL (0.8-4.8); Lymphocytes % 6.1 %; Mean Corpuscular HGB Conc 31.3 g/dL (30.0-36.0); Mean Corpuscular Hemoglobin 28.1 pg (28.0-34.0); Mean Corpuscular Volume 89.9 fl (81-99); Mean Platelet Volume 10.4 fL (7.4-10.4); Monocytes # 1.1 10^3/uL (0.2-0.9); Monocytes % 3.9 %; Neutrophils # 24.87 10^3/uL (1.8-7.7); Neutrophils % 89.1 %; Nucleated Red Blood Cells % 0 %; Platelet Count 369 10^3/cmm (130-400); Red Blood Count 4.94 10^6/uL (4.1-5.3); Red Cell Distribution Width 13.5 % (12.1-15.1); White Blood Count 27.9 10^3/uL (4.0-10.0)
[2021-03-16] MEDS: budesonide 0.5 mg/2 mL Neb INHALATION ×2 (08:10→20:43)
[2021-03-16] MEDS: famotidine 20 mg Tablet PO ×2 (08:40→17:18)
[2021-03-16] MEDS: acetaminophen 325 mg Tablet 650 MG PO (09:05)
--- NOTE | 2021-03-16 13:47 | USCV_ITS ---
Ana Lilia Joseph Age: 50 Gender: F : 1970 Exam Date: 03/16/2021 15:21 Ordering Phys: Vish Aparicio MD Technologist: Dionne Quick [place] [facility] [place]: CHF BP: 118 / 65 HR: 61 Rhythm: Sinus Technical Quality: Adequate MEASUREMENTS (Male / Female) Normal Values 2D ECHO LV Diastolic Diameter PLAX 3.0 cm 4.2 - 5.9 / 3.9 - 5.3 cm LV Systolic Diameter PLAX 2.0 cm IVS Diastolic Thickness 1.2 cm 0.6 - 1.0 / 0.6 - 0.9 cm IVS Systolic Thickness 1.8 cm LVPW Diastolic Thickness 1.1 cm 0.6 - 1.0 / 0.6 - 0.9 cm LVPW Systolic Thickness 1.5 cm LVOT Diameter 2.0 cm LV Ejection Fraction 2D Teich 63.6 % LV Ejection Fraction MOD 2C 75.1 % LV Ejection Fraction 2C AL 75.9 % LA Diameter 2.2 cm LA Width 2.8 cm LA Height 4.4 cm RA Width 2.8 cm RA Height 3.7 cm Aorta at Sinotubular Diameter 1.7 cm DOPPLER AV Peak Velocity 223.0 cm/s LVOT Peak Velocity 159.7 cm/s AV Area Cont Eq vti 2.2 cm squared AV Area Cont Eq pk 2.3 cm squared MV Area PHT 4.5 cm squared Mitral E to A Ratio 1.2 MV E' Velocity 51.5 cm/s Mitral E to MV E' Ratio 8.1 Mitral E to LV E' Lateral Ratio 8.9 Mitral E to LV E' Septal Ratio 7.5 TR Peak Velocity 304.7 cm/s TR Peak Gradient 37.1 mmHg Right Atrial Pressure 3.0 mmHg Pulmonary Artery Systolic Pressu 40.1 mmHg PV Peak Velocity 109.0 cm/s RV Acceleration Time 0.1 s RV Ejection Time 0.3 s RV AcT/ET 0.3 FINDINGS Left Ventricle Normal left ventricular size, systolic function and mildly increased wall thickness, with no regional wall motion abnormalities. Left ventricular ejection fraction is estimated at 70 %. Normal diastolic function. Right Ventricle Normal right ventricular size and systolic function. RVSP could not be calculated due to incomplete tricuspid regurgitation velocity profile. Right Atrium Normal right atrial size. Right atrial pressure estimated at 3 mmHg. Left Atrium Normal left atrial size. Mitral Valve Structurally normal mitral valve. No mitral valve stenosis. No mitral valve regurgitation. Aortic Valve No aortic valve stenosis. No aortic valve regurgitation. Tricuspid Valve Structurally normal tricuspid valve. Trace tricuspid valve regurgitation. Pulmonic Valve Pulmonic valve not well visualized. No pulmonary valve regurgitation. Pericardium No pericardial effusion. Aorta Normal-sized inferior vena cava with normal respiratory variation. CONCLUSIONS 1. Normal left ventricular size, systolic function and mildly increased wall thickness, with no regional wall motion abnormalities. Left ventricular ejection fraction is estimated at 70 %. Normal diastolic function. 2. Normal right ventricular size and systolic function. 3. No significant valvular abnormality. 4. No prior similar studies to compare. Sita Stanford MD (Electronically Signed) Final Date: 16 March 2021 18:17 S
[2021-03-16 15:12] LABS: NT Pro B Type Natriuretic Pept 409 pg/mL (0-125); Procalcitonin 0.03 ng/mL (0-0.5)
[2021-03-16 15:23] LABS: Iron 46 ug/dL (37-145); Percent Saturation 19.5 % (20-50); Total Iron Binding Capacity 235 mcg/dl; Unsaturated Iron Binding 189 ug/dL (112-347)
--- NOTE | 2021-03-16 16:06 | PC.RESP ---
SMOKING CESSATION AND PULMONARY REHAB INFORMATION SENT TO PATIENT.
[2021-03-16 16:21] LABS: Coronavirus Test Green County Not Detected
--- NOTE | 2021-03-16 16:38 | P.PN_ITS ---
Subjective Subjective: Interval history: Hospital course, labs appreciated. No acute events overnight. On examination on 2 L satting 94%. States she is feeling better. Anxious. States she was intubated around 4 years ago because of COPD exacerbation secondary to pneumonia at [place] for an 8 days. Was on oxygen for around the ER post extubation. Currently not requiring any oxygen at home. Denies any nausea vomiting, headache, dizziness. Vitals/I&O/Wt Last Vital Signs Temp 98.6 F 03/16/21 11:56 Pulse 67 03/16/21 16:00 Resp 18 03/16/21 11:56 BP 109/64 03/16/21 16:00 Pulse Ox 94 03/16/21 16:00 03/16/21 03/16/21 03/16/21 06:59 14:59 22:59 Intake Total 150 / 630 620 / 620 Balance 150 / 630 620 / 620 Weight last 48 hrs Weight 77.111 kg Physical Exam Const: COMMON NORMALS: no acute distress, patient oriented x3 and alert GENERAL APPEARANCE: cooperative ORIENTATION/CONSCIOUSNESS: Yes awake HENMT: COMMON NORMALS: oropharynx normal Neck/C-Spine: COMMON NORMALS: no JVD Resp: COMMON NORMALS: normal respiratory effort AUSCULTATION: wheezes and diminished lung sounds Cardio: COMMON NORMALS: no JVD, regular rhythm, S1 normal heart sound present, S2 normal heart sound present and No murmurs present (Cardio) RHYTHM: regular rhythm HEART SOUNDS: S1 normal heart sound present and S2 normal heart sound present GI: COMMON NORMALS: Normal to inspection, nondistended, normoactive bowel sounds present, Soft to palpation and non-tender PALPATION: Yes Soft to palpation Extremity: COMMON NORMALS: no joint enlargement and no pedal edema Neuro: COMMON NORMALS: patient oriented x3 and moves all extremities SENSORIUM/ORIENTATION: Yes alert Skin: COMMON NORMALS: no rashes or lesions noted GENERAL SKIN EXAM: no rashes or lesions noted Data : 03/16/21 06:05 03/16/21 06:05 Micro: Microbiology 03/14/21 19:08 Blood Culture - Preliminary Blood NEGATIVE TO DATE 03/14/21 17:06 Blood Culture - Preliminary Blood NEGATIVE TO DATE A&P Assessment and plan (1) Acute hypoxemic respiratory failure: Somewhat progressive symptoms, and reports history of recurrent pneumonias. 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 Previously diagnosed only with COPD. Discussed with her groundglass opacities, suspect these may be related to additional underlying process other than COPD. Currently pending additional work-up. Follow-up COVID-19 PCR. Requested urine bacterial antigens. Respiratory viral panel. Add galactomannan. Histoplasma antibody. Fungitell. With somewhat subacute/progressive onset, recurrent symptoms, discussed consideration if current presentation not explained by COVID-19 and other work- up currently in progress, of possible interstitial lung disease, hypersensitivity pneumonitis, additional possible etiologies for which may benefit from assessment by pulmonology, possibly during this admission depending on condition and if we are not finding good explanation for her symptoms. Empirically on Levaquin for now, although afebrile, without definitive consolidation and with normal procalcitonin. If alternative explanation becomes more likely, consider de-escalation. With component of COPD exacerbation, on steroids, nebs, inhaled steroid. Symptoms have been developing over the last couple of months and have acutely worsened in the last few days to the point that she has been unable to work. She has had some subjective fevers, difficult expectoration with primarily nonproductive cough, posttussive emesis, general aches and pains and malaise. Rapid Covid antigen is negative. She has groundglass opacities bilaterally which could be suggestive of Covid however she has leukocytosis without a lymphopenia. She is not Covid vaccinated and has not tested positive for Covid previously. Differential includes Covid or other viral infection and bacterial pneumonia, Legionella, among others. With unremarkable EKG, troponin and BNP do not currently suspect cardiac etiology of presentation. CTA was negative for PE. Status: Acute (2) Pneumonia: Patient reports that she gets pneumonia annually Status: Acute Qualifiers: Pneumonia type: due to unspecified organism Laterality: bilateral Lung location: lower lobe of lung Qualified Code(s): J18.9 - Pneumonia, unspecified organism (3) Acute exacerbation of chronic obstructive pulmonary disease: Status: Acute (4) Nicotine dependence, cigarettes, with other nicotine-induced disorders: Add nicotine lozenges Status: Acute (5) Hyperlipidemia: Status: Chronic Qualifiers: Hyperlipidemia type: unspecified Qualified Code(s): E78.5 - Hyperlipidemia, unspecified Additional A&P Information Mild lactic acid elevation, likely secondary to hypoxemia given clinical prese ntation Plan for the day: Continue with DuoNebs every 6 hour, add budesonide twice daily. Wean down Solu-Medrol to 60 mg every 12 hourly. Continue with levofloxacin. COVID-19 PCR negative. Multiple infectious work-up sent out early in the admission. Awaited. Check MRSA swab, urine Legionella, bacterial antigen, flu swab. Respiratory viral panel added earlier in the admission still pending. Wean oxygen keeping saturation over 88%. Attestations Medical Necessity Statement*: Requires further hospitalization for management of COPD exacerbation Time Spent in Patient Care: Greater than 35 minutes (>than 50% of time spent in counselling and/or direct pt care on unit) . 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
[2021-03-16 17:27] LABS: Influenza A by IFA Negative (Negative); Influenza B by IFA Negative (Negative)
[2021-03-16 17:35] LABS: Add Urine Microscopic? NO; Charge for UA Resulting for Rev
[2021-03-16 17:55] LABS: Bilirubin Urine Neg (Negative); Blood Urine Neg (Negative); Glucose Urine UA 4+ (Normal); Ketones Urine Negative (Negative); Leukocyte Esterase Urine Negative (Negative); Nitrate Urine Negative (Negative); Protein Urine Neg (Negative); Urine Appearance Clear (CLEAR); Urine Color Straw (Yellow); Urobilinogen Urine Norm (Negative); pH Urine 6 (5-7)
[2021-03-16] MEDS: levofloxacin-dextrose 5 % 750 MG/150 ML PREMIX 100 MG IV (21:28)
[2021-03-16] MEDS: enoxaparin 40 mg/0.4 mL Syringe SUBCUT (21:31)
--- NOTE | 2021-03-16 23:08 | PC.NURSE ---
[id number] admin ivp for primary nurse
[2021-03-17] VITALS (9 sets, daily range): BP systolic 114–137; BP diastolic 61–80; PULSE 54–67; RESP 16–18; TEMP 36.4–36.7; O2SAT 90–94
[2021-03-17] MEDS: ipratropium-albuterol 3 mL Neb INHALATION ×2 (04:07→09:01)
[2021-03-17 06:20] LABS: Basophils % 0.1 %; Hematocrit 43.7 % (37.0-47.0); Lymphocytes % 9.3 %; Mean Corpuscular Hemoglobin 28.6 pg (28.0-34.0); Mean Corpuscular Volume 89.4 fl (81-99); Mean Platelet Volume 9.7 fL (7.4-10.4); Monocytes # 0.8 10^3/uL (0.2-0.9); Monocytes % 3.5 %; Neutrophils % 85.9 %; Nucleated Red Blood Cells % 0 %; Platelet Count 340 10^3/cmm (130-400); Red Blood Count 4.89 10^6/uL (4.1-5.3); Red Cell Distribution Width 13.4 % (12.1-15.1); White Blood Count 21.7 10^3/uL (4.0-10.0)
[2021-03-17 06:28] LABS: Estmated Average Glucose 143; Hemoglobin A1C 6.6 % (4.0-6.0)
[2021-03-17 06:42] LABS: Alanine Aminotransferase 10 U/L (0-33); Albumin Level 3.6 g/dL (3.5-5.2); Alkaline Phosphatase 89 IU/L (35-105); Anion Gap 11.3 (5-19); Aspartate Amino Transferase 7 U/L (0-32); Blood Urea Nitrogen 19 mg/dL (6-20); Carbon Dioxide 26 mmol/L (22-29); Chloride 105 mmol/L (98-107); Globulin 2.7 g/dL (1.3-4.6); Glucose 209 mg/dL (65-115); Osmolality Calculated 294 mOsm/kg (285-295); Potassium 4.3 mmol/L (3.5-5.1); Sodium 138 mmol/L (136-145); Total Bilirubin 0.2 mg/dL (0.15-1.2); Total Protein 6.3 g/dL (6.6-8.7)
[2021-03-17 06:44] LABS: Chol HDL Ratio 4.43 mg/dL (0.0-4.40); Cholesterol 204 mg/dL (0-200); HDL Cholesterol 46 mg/dL (60-100); LDL Cholesterol Calculated 122 mg/dL (50-129); Triglycerides 182 mg/dL (0-150); VLDL Cholestrol Calculation 36 mg/dL (0-30)
[2021-03-17] MEDS: budesonide 0.5 mg/2 mL Neb INHALATION (09:01)
[2021-03-17] MEDS: famotidine 20 mg Tablet PO (09:27)
--- NOTE | 2021-03-17 12:17 | P.DS_ITS ---
Discharge Providers Date of Admission: 03/14/21 20:21 Date of Discharge: March 17, 2021 Attending Provider at Admission: Dee Barba MD Attending Provider at Discharge: Vish Aapricio MD Diagnoses at Discharge Discharge Diagnosis (1) Acute hypoxemic respiratory failure: Status: Acute (2) Pneumonia: Status: Acute Qualifiers: Pneumonia type: due to unspecified organism Laterality: bilateral Lung location: lower lobe of lung Qualified Code(s): J18.9 - Pneumonia, unspecified organism (3) Acute exacerbation of chronic obstructive pulmonary disease: Status: Acute (4) Nicotine dependence, cigarettes, with other nicotine-induced disorders: Status: Acute (5) Hyperlipidemia: Status: Chronic Qualifiers: Hyperlipidemia type: unspecified Qualified Code(s): E78.5 - Hyperlipidemia, unspecified Reason for Visit Reason for Visit: TROUBLE BREATHING Hospital Course Hospital Course Ana Lilia Joseph is a 50 year old female who is a current chronic smoker with no significant past medical history other than recurrent pneumonia with last pneumonia over 4 years ago when she was intubated for 8 days in ICU in [facility] and was on home oxygen for a year presented to the ER with chief complaint of increasing difficulty in breathing on March 14. She is admitted to the hospital for further evaluation and management of shortness of breath and hypoxia. CTA was negative for PE. COVID-19 was ruled out with negative PCR, influenza swab was negative. On admission multiple infectious work-up was sent out which is still pending. Is believed patient most likely had COPD exacerbation secondary to viral bronchitis. She was started on relation treatment and IV steroids which were slowly weaned off. Currently she is on room air saturating 92%. During hospitalization blood work was done which showed she has baseline type 2 diabetes mellitus and h yperlipidemia. Echocardiogram was done which showed an EF of 70% with normal diastolic function without evidence of pulmonary hypertension. She has been discharged in hemodynamically stable condition with advised to follow-up primary care provider within next 2 weeks. Patient currently does not have a primary care provider and it was offered to her that we can set up a primary care provider for her but for now she wants to find one by herself after confirming with her insurance company. She is been discharged on steroid taper with inhalation treatment. She is advised to follow-up with pulmonology within next 2 weeks. She is been counseled and advised in detail to quit smoking as soon as possible. Physical Exam Const: COMMON NORMALS: no acute distress, patient oriented x3 and alert GENERAL APPEARANCE: cooperative ORIENTATION/CONSCIOUSNESS: Yes awake HENMT: COMMON NORMALS: oropharynx normal Neck/C-Spine: COMMON NORMALS: no JVD Resp: COMMON NORMALS: normal respiratory effort AUSCULTATION: wheezes and diminished lung sounds Cardio: COMMON NORMALS: no JVD, regular rhythm, S1 normal heart sound present, S2 normal heart sound present and No murmurs present (Cardio) RHYTHM: regular rhythm HEART SOUNDS: S1 normal heart sound present and S2 normal heart sound present GI: COMMON NORMALS: Normal to inspection, nondistended, normoactive bowel sounds present, Soft to palpation and non-tender PALPATION: Yes Soft to palpation Extremity: COMMON NORMALS: no joint enlargement and no pedal edema Neuro: COMMON NORMALS: patient oriented x3 and moves all extremities SENSORIUM/ORIENTATION: Yes alert Skin: COMMON NORMALS: no rashes or lesions noted GENERAL SKIN EXAM: no rashes or lesions noted Discharge Data Data Completed and Pending: Completed Studies During Hospitalization Category Date Time Status CT angio chest PE protcl [id number] Urge nt Cat Scan 03/14/21 17:24 Completed XR chest 1V clarice ble [id number] Urgent Exams 03/14/21 16:52 Completed CV. echo complete * [id number] Routine Ultrasound 03/16/21 13:47 Completed Pending at discharge Category Date Time Status Aspergillus AG,EI A,Serum Routine Lab 03/16/21 06:05 Received Bacterial Antigen Stat Lab 03/16/21 14:37 Received Blood Culture Sta t Lab 03/14/21 17:06 Results Complete Blood Co unt w/Auto AM LABS Lab 03/18/21 04:00 Ordered Comprehensive Met abolic Panel AM LA BS Lab 03/18/21 04:00 Ordered Fungitell Glucan Assay Routine Lab 03/15/21 06:05 Received Histoplasma Antib mariluz Routine Lab 03/15/21 06:05 Received Legionella Antige n STAT Routine Lab 03/14/21 20:47 Uncollected MRSA by PCR Routi ne Lab 03/16/21 13:47 Ordered Respiratory Viral Panel PCR Routine Lab 03/15/21 21:10 Received Sputum Culture an d Gram Stain Stat Lab 03/16/21 13:47 Uncollected Labs from last 24 hours 03/17/21 03/17/21 03/17/21 06:01 06:01 06:01 WBC RBC Hgb Hct MCV MCH MCHC RDW Plt Count MPV Neut % (Auto) Lymph % (Auto) [place] % (Auto) Eos % (Auto) Baso % (Auto) Neut # (Auto) Lymph # (Auto) [place] # (Auto) Eos # (Auto) Baso # (Auto) Nucleated RBC % (a uto) Nucleated RBCs # Sodium 138 Potassium 4.3 Chloride 105 Carbon Dioxide 26 Anion Gap 11.3 BUN 19 Creatinine 0.6 GFR Calculation 105.0 Glucose 209 H Estimat Average Gl ucose 143 Hemoglobin A1c 6.6 H Calculated Osmolal ity 294 Calcium 9.0 Iron TIBC % Saturation Unsat Iron Binding Total Bilirubin 0.2 AST 7 ALT 10 Alkaline Phosphata se 89 NT-Pro-B Natriuret Pep Total Protein 6.3 L Albumin 3.6 Globulin 2.7 Triglycerides 182 H Cholesterol 204 H LDL Cholesterol, C alc 122 Total VLDL Cholest jony 36 H HDL Cholesterol 46 L Cholesterol/HDL Ra bertha 4.43 H Procalcitonin TSH Urine Color Urine Appearance Urine pH Ur Specific Gravit y Urine Protein Urine Glucose (UA) Urine Ketones Urine Blood Urine Nitrate Urine Bilirubin Urine Urobilinogen Ur Leukocyte Ro ase RSV Nasal Swab RSV Nasal Swab Int Cntl Adenovirus (PCR) Nasal/Oral COVID-1 9 PCR Human Metapneumovi r PCR Influenza A (RT-PC R) Influenza A (H1) P CR Influenza A (H3) P CR Influenza Type A A g Influenza Type B A g Influenza B (RT-PC R) Parainfluenzae Typ e 1 Parainfluenzae Typ e 2 Parainfluenzae Typ e 3 RSV Ab Comment Rhinovirus (PCR) SARS-CoV-2 RNA (RT -PCR) 03/17/21 03/16/21 03/16/21 06:01 17:19 17:03 WBC 21.7 H RBC 4.89 Hgb 14.0 Hct 43.7 MCV 89.4 MCH 28.6 MCHC 32.0 RDW 13.4 Plt Count 340 MPV 9.7 Neut % (Auto) 85.9 Lymph % (Auto) 9.3 [place] % (Auto) 3.5 Eos % (Auto) 0.0 Baso % (Auto) 0.1 Neut # (Auto) 18.60 H Lymph # (Auto) 2.0 [place] # (Auto) 0.8 Eos # (Auto) 0.0 Baso # (Auto) 0.0 Nucleated RBC % (a uto) 0 Nucleated RBCs # 0.0 Sodium Potassium Chloride Carbon Dioxide Anion Gap BUN Creatinine GFR Calculation Glucose Estimat Average Gl ucose Hemoglobin A1c Calculated Osmolal ity Calcium Iron TIBC % Saturation Unsat Iron Binding Total Bilirubin AST ALT Alkaline Phosphata se NT-Pro-B Natriuret Pep Total Protein Albumin Globulin Triglycerides Cholesterol LDL Cholesterol, C alc Total VLDL Cholest jony HDL Cholesterol Cholesterol/HDL Ra bertha Procalcitonin TSH Urine Color Straw Urine Appearance Clear Urine pH 6 Ur Specific Gravit y 1.020 Urine Protein Neg Urine Glucose (UA) 4+ H Urine Ketones Negative Urine Blood Neg Urine Nitrate Negative Urine Bilirubin Neg Urine Urobilinogen Norm Ur Leukocyte Ro ase Negative RSV Nasal Swab Pending RSV Nasal Swab Int Cntl Pending Adenovirus (PCR) Pending Nasal/Oral COVID-1 9 PCR Human Metapneumovi r PCR Pending Influenza A (RT-PC R) Pending Influenza A (H1) P CR Pending Influenza A (H3) P CR Pending Influenza Type A A g Influenza Type B A g Influenza B (RT-PC R) Pending Parainfluenzae Typ e 1 Pending Parainfluenzae Typ e 2 Pending Parainfluenzae Typ e 3 Pending RSV Ab Comment Pending Rhinovirus (PCR) Pending SARS-CoV-2 RNA (RT -PCR) Addt'l Data from Hospital Stay: Laboratory Results WBC 21.7 10^3/uL (4.0 -10.0) H 03/17/21 06:01 RBC 4.89 10^6/uL (4.1 -5.3) 03/17/21 06:01 Hgb 14.0 g/dL (11.5-1 5.3) 03/17/21 06:01 Hct 43.7 % (37.0-47.0 ) 03/17/21 06:01 MCV 89.4 fl (81-99) 03/17/21 06:01 MCH 28.6 pg (28.0-34. 0) 03/17/21 06:01 MCHC 32.0 g/dL (30.0-3 6.0) 03/17/21 06:01 RDW 13.4 % (12.1-15.1 ) 03/17/21 06:01 Plt Count 340 10^3/cmm (130 -400) 03/17/21 06:01 MPV 9.7 fL (7.4-10.4) 03/17/21 06:01 Neut % (Auto) 85.9 % 03/17/21 06:01 Lymph % (Auto) 9.3 % 03/17/21 06:01 [place] % (Auto) 3.5 % 03/17/21 06:01 Eos % (Auto) 0.0 % 03/17/21 06:01 Baso % (Auto) 0.1 % 03/17/21 06:01 Neut # (Auto) 18.60 10^3/uL (1. 8-7.7) H 03/17/21 06:01 Lymph # (Auto) 2.0 10^3/uL (0.8- 4.8) 03/17/21 06:01 [place] # (Auto) 0.8 10^3/uL (0.2- 0.9) 03/17/21 06:01 Eos # (Auto) 0.0 10^3/uL (0.0- 0.8) 03/17/21 06:01 Baso # (Auto) 0.0 10^3/uL (0.0- 0.1) 03/17/21 06:01 Nucleated RBC % (a uto) 0 % 03/17/21 06:01 Nucleated RBCs # 0.0 /100WBC 03/17/21 06:01 Specimen Type Arterial 03/14/21 17:21 Sample Site Radial, left 03/14/21 17:21 ABG pH 7.42 (7.35-7.45) 03/14/21 17: ABG pCO2 39.1 mmHg (35-45) 03/14/21 17: ABG pO2 38.3 mmHg (80.0-1 00.0) L* 03/14/21 17: ABG HCO3 25.4 mmol/L (22-2 6) 03/14/21 17: ABG Base Excess 0.9 mmol/L (-2.0- 2.0) 03/14/21 17: Jose Alejandro Test Pos 03/14/21 17:21 Hematocrit 48.6 % (37-47) H 03/14/21 17:21 O2 Delivery Device Nc 03/14/21 17:21 O2 Liters/Min 6.0 % 03/14/21 17:21 Window Cleaner ID Cak 03/14/21 17:21 Sodium 138 mmol/L (136-1 45) 03/17/21 06:01 Potassium 4.3 mmol/L (3.5-5 .1) 03/17/21 06:01 Chloride 105 mmol/L (98-10 7) 03/17/21 06:01 Carbon Dioxide 26 mmol/L (22-29) 03/17/21 06:01 Anion Gap 11.3 (5-19) 03/17/21 06:01 BUN 19 mg/dL (6-20) 03/17/21 06:01 Creatinine 0.6 mg/dL (0.5-0. 9) 03/17/21 06:01 GFR Calculation 105.0 mL/min (90- 130) 03/17/21 06:01 Glucose 209 mg/dL (65-115 ) H 03/17/21 06:01 Estimat Average Gl ucose 143 03/17/21 06:01 Hemoglobin A1c 6.6 % (4.0-6.0) H 03/17/21 06:01 Calculated Osmolal ity 294 mOsm/kg (285- 295) 03/17/21 06:01 Lactic Acid 2.5 mmol/L (0.5-2 .2) H 03/14/21 19:08 Lactic Acid (Sepsi s) 2.0 mmol/L (0.5-2 .2) 03/14/21 21:40 Calcium 9.0 mg/dL (8.5-10 .5) 03/17/21 06:01 Magnesium 2.0 mg/dL (1.7-2. 3) 03/15/21 06:37 Iron 46 ug/dL (37-145) 03/16/21 06:05 TIBC 235 mcg/dl 03/16/21 06:05 % Saturation 19.5 % (20-50) L 03/16/21 06:05 Unsat Iron Binding 189 ug/dL (112-34 7) 03/16/21 06:05 Ferritin 147 ng/mL (15-150 ) 03/14/21 17:06 Total Bilirubin 0.2 mg/dL (0.15-1 .2) 03/17/21 06:01 AST 7 U/L (0-32) 03/17/21 06:01 ALT 10 U/L (0-33) 03/17/21 06:01 Alkaline Phosphata se 89 IU/L (35-105) 03/17/21 06:01 Troponin T Baselin e 7 ng/L (0-10) 03/14/21 17:06 Troponin T 120 Min [place] 6.09 ng/L (0-10) 03/14/21 19:08 Delta Troponin T -0.91 ABS# (0-10) L 03/14/21 19:08 Troponin T Hi Sens 6Hr 6.00 ng/L (0-10) 03/14/21 23:26 Troponin T Hi Sens 6Hr Delta -1.00 ng/L (0-12) L 03/14/21 23:26 C-Reactive Protein 25.7 mg/L (0.0-4. 9) H 03/14/21 17:06 NT-Pro-B Natriuret Pep 409 pg/mL (0-125) H 03/16/21 06:05 Total Protein 6.3 g/dL (6.6-8.7 ) L 03/17/21 06:01 Albumin 3.6 g/dL (3.5-5.2 ) 03/17/21 06:01 Globulin 2.7 g/dL (1.3-4.6 ) 03/17/21 06:01 Triglycerides 182 mg/dL (0-150) H 03/17/21 06:01 Cholesterol 204 mg/dL (0-200) H 03/17/21 06:01 LDL Cholesterol, C alc 122 mg/dL (50-129 ) 03/17/21 06:01 Total VLDL Cholest jony 36 mg/dL (0-30) H 03/17/21 06:01 HDL Cholesterol 46 mg/dL (60-100) L 03/17/21 06:01 LDL/HDL Ratio 3.73 RATIO (0.00- 3.22) H 03/15/21 06:37 Cholesterol/HDL Ra bertha 4.43 mg/dL (0.0-4 .40) H 03/17/21 06:01 Procalcitonin 0.03 ng/mL (0-0.5 ) 03/16/21 06:05 TSH 0.50 uIU/mL (0.27 -4.20) 03/16/21 06:05 TSH Cancelled 03/16/21 06:05 Urine Color Straw (Yellow) 03/16/21 17:19 Urine Appearance Clear (CLEAR) 03/16/21 17:19 Urine pH 6 (5-7) 03/16/21 17:19 Ur Specific Gravit y 1.020 (1.005-1.0 30) 03/16/21 17:19 Urine Protein Neg (Negative) 03/16/21 17:19 Urine Glucose (UA) 4+ (Normal) H 03/16/21 17:19 Urine Ketones Negative (Negati ve) 03/16/21 17:19 Urine Blood Neg (Negative) 03/16/21 17:19 Urine Nitrate Negative (Negati ve) 03/16/21 17:19 Urine Bilirubin Neg (Negative) 03/16/21 17:19 Urine Urobilinogen Norm mg/dL (Negat [place]) 03/16/21 17:19 Ur Leukocyte Ro ase Negative (Negati ve) 03/16/21 17:19 Nasal/Oral COVID-1 9 PCR Cancelled 03/14/21 18:41 Nasal/Oral COVID-1 9 PCR Not detected 03/14/21 18:41 Influenza Type A A g Negative (Negati ve) 03/16/21 16:48 Influenza Type B A g Negative (Negati ve) 03/16/21 16:48 SARS-CoV-2 RNA (RT -PCR) Cancelled 03/14/21 18:41 SARS-CoV-2 Ag (Rap id) Negative (Negati ve) 03/14/21 18:41 [facility] [place] Cancelled 03/15/21 06:05 Impressions Chest X-Ray 03/14/21 16:52 IMPRESSION: 1. Cardiomegaly. 2. Bibasilar atelectasis versus mild infiltrate. Radiation Dose CTDIVOL = (mGy): DLP = (mGy-cm) Chest CTA 03/14/21 17:24 IMPRESSION: There are multifocal bilateral pulmonary ground-glass opacities.Imaging features can be seen with COVID-19 pneumonia, though are nonspecific and can occur with a variety of infectious and noninfectious processes. (Reference: Alistair) REFERENCES: Alistair Lambert, et al., Radiological Society of [place] Expert Consensus Statement on Reporting Chest CT Findings Related to COVID-19. Endorsed by the Society of Thoracic Radiology, the [place] [employer], and RSNA. Published August 08, 2019. Radiation Dose CTDIVOL = (mGy): DLP = 511.46 (mGy-cm) Microbiology 03/16/21 17:19 Urine,Voided Legionella Urinary Antigen - Final 03/16/21 17:19 Urine,Voided Bacterial Antigens - Final 03/14/21 19:08 Blood Blood Culture - Preliminary NEGATIVE TO DATE 03/14/21 17:06 Blood Blood Culture - Preliminary NEGATIVE TO DATE Vitals: Last Vital Signs Temp 97.9 F 03/17/21 11:54 Pulse 54 L 03/17/21 11:54 Resp 16 03/17/21 11:54 BP 137/80 03/17/21 11:54 Pulse Ox 92 03/17/21 11:54 Discharge Plan Discharge Patient Disposition: Home Condition: Stable Prescriptions: New metformin 1,000 mg tablet 1,000 mg PO BID Qty: 60 RF: 0 atorvastatin 40 mg tablet 40 mg PO DAILY Qty: 30 RF: 0 prednisone 10 mg tablet See Taper mg PO DAILY Qty: 42 RF: 0 ipratropium-albuterol 0.5 mg-3 mg(2.5 mg base)/3 mL solution for nebulization 3 ml inhalation Q6H Qty: 90 RF: 0 Pulmicort 0.5 mg/2 mL suspension for nebulization 0.25 mg inhalation BID Qty: 60 RF: 0 Continued Symbicort 160-4.5 mcg/actuation Hfa Aerosol Inhaler 2 puff INHALATION BID RF: 0 Discontinued Advair Diskus 250-50 mcg/dose Blister With Device 1 inh INHALATION BID RF: 0 Discharge Orders: Discharge Order (Routine); Ordered 03/17/21 Ordered By: Vish Aparicio Other Ambulatory Orders: DME: Nebulizer with Neb Kit (Order) Location: None Selected Ordered By: Vish Aparicio Referrals: Bertha Plaza MD [Physician] - 2 weeks Discharge Diet: Cardiac and Low Fat Discharge Activity: Resume usual activity Patient Instructions: Opioid Safety Activity Restrictions/Additional Instructions: Metformin is the diabetes medication which is supposed to take 2 times a day. Atorvastatin is a cholesterol medication which is supposed to take once daily. Please take prednisone as per taper. DuoNebs and Pulmicort with inhalation treatment which he should take for next 10 days as prescribed and after that as needed. Once you are done with your inhalation treatment you can continue using his Symbicort as before. Please try to quit smoking as soon as possible. Please try to make an appointment with your primary care provider within next 2 weeks. Please repeat HbA1c and lipid panel within next 3 months. Discharge Attestations Time Spent in Discharge Care*: greater than 30 min Specific Discharge Activities: educating patient, discussing with pcp/other providers, discussing with case planner/social workers/dc planners, documenting/other paperwork and evaluating patient/reviewing data Time Spent in Smoking Cessation: more than 10 minutes Status at Discharge: Cognitive status at discharge: cognitively intact , Behavioral status at discharge: cooperative , Functional status at discharge: independent ambulation Overall status at discharge: patient is back to baseline Quality Metrics Clinical Quality Measures During this hospital stay, did patient experience: None Coding Level of Care Code Acute [facility] note Diagnoses Acute hypoxemic respiratory failure J96.01 Pneumonia J18.9 Pneumonia type: due to unspecified organism Laterality: bilateral Lung location: lower lobe of lung Acute exacerbation of chronic obstructive pulmonary disease J44.1 Nicotine dependence, cigarettes, with other nicotine-induced disorders F17.218 Hyperlipidemia E78.5 Hyperlipidemia type: unspecified
--- NOTE | 2021-03-17 14:58 | PC.NURSE ---
PT HAS DONE WELL FOR ME TODAY. PT IS READY TO GO HOME. PT IS AMBULATING WITHOUT ANY OXYGEN AND IS DOING WELL. PT WILL GO HOME TODAY PER PHYSICIAN. IV REMOVED. PT TOLERATED WELL. CATHETER TIP INTACT. DISCHARGE GONE OVER WITH PT. ALL QUESTIONS ANSWERED. MEDICATIONS BROUGHT UP TO PT. PT SAFELY WHEELED OUT BY THIS NURSE.
[2021-03-20 17:53] LABS: Adenovirus Not Detected (Not Detected); Human Metapneumovirus Not Detected (Not Detected); Human Parainflu Virus 1 Not Detected (Not Detected); Human Parainflu Virus 2 Not Detected (Not Detected); Human Parainflu Virus 3 Not Detected (Not Detected); Human Rsv A Not Detected (Not Detected); Influenza A Not Detected (Not Detected); Influenza B Not Detected (Not Detected); Rhinovirus/Enterovirus Not Detected (Not Detected)
[2021-03-24 20:18] LABS: Fungitell 1-3-B Glucan Assay <31 pg/mL; Interpretation NEGATIVE
[2021-03-26 21:17] LABS: Aspergillus AG,EIA,Serum NOT DETECTED; Aspergillus Galactomannan Inde <0.50
== END 2021-03-17 15:02 | disposition home or self-care (01) | DRG 190 ==
LOC: ER 19:30 → MEDSURG 20:50
PROVIDERS: Emergency Medicine; Internal Medicine; Admitting Provider Hospitalist; Emergency Provider Emergency Medicine; Visit Provider Student in an Organized Health Care Education/Training Program
DX: J44.0 Chronic obstructive pulmonary disease with (acute) lower respiratory infection (principal); J96.01 Acute respiratory failure with hypoxia; J20.9 Acute bronchitis, unspecified; J44.1 Chronic obstructive pulmonary disease with (acute) exacerbation; Z87.01 Personal history of pneumonia (recurrent); E78.5 Hyperlipidemia, unspecified; F17.210 Nicotine dependence, cigarettes, uncomplicated; E11.9 Type 2 diabetes mellitus without complications
CPT/HCPCS: 36415; 36600; 71045; 71275; 80048; 80053; 80061; 81003; 82728; 82803; 83036; 83540; 83550; 83605; 83735; 83880; 84145; 84443; 84484; 85025; 86140; 86403; 86698; 87040; 87305; 87426; 87449; 87635; 87641; 87804; 93005; 93306; 94640; 96372; 96374; 99285; J1650; J1956; J2930; J7626; Q9967

== ENCOUNTER → 2021-04-13 13:15 | Outpatient (BNVA) | payer OTHER, SELFPAY | PROVIDERS: Visit Provider Family Medicine | DX: R10.11 Right upper quadrant pain (principal); E11.65 Type 2 diabetes mellitus with hyperglycemia; J44.9 Chronic obstructive pulmonary disease, unspecified; E78.5 Hyperlipidemia, unspecified | CPT/HCPCS: 80061; 83036 ==

== ENCOUNTER 2021-05-19 08:09 | Outpatient (CLI) | payer OTHER, SELFPAY ==
--- NOTE | 2021-05-19 08:17 | US_ITS ---
WS: [id number] Complete ABDOMINAL ULTRASOUND HISTORY: R10.11 - Right upper quadrant pain COMPARISON: None available. Liver: 15.3 cm in length. Liver is top normal size. Moderate coarse echotexture throughout the liver. No discrete mass. No bile duct dilatation. Portal Vein: Normal hepatopetal flow with monophasic waveform. Gallbladder: Normally distended with no gallstones, wall thickening or pericholecystic fluid. Gallbladder wall thickness: 0.2 cm. Pancreas: Not visualized. CBD: 0.5 cm. Right kidney: 12.0 cm x 4.4 cm x 4.6 cm. No mass, cortical thickening or hydronephrosis. Left kidney: 11.5 cm x 5.1 cm x 5.7 cm. No mass, cortical thickening or hydronephrosis. Spleen: Normal size and echogenicity. Abdominal aorta and IVC are within normal limits. No ascites. US/US abdomen complete* [id number] IMPRESSION: 1. Normal gallbladder. 2. Mild coarse echotexture throughout the liver. Probably related to hepatic s teatosis or early cirrhosis.
== END 2021-05-19 08:10 | disposition home or self-care (01) ==
LOC: RAD 08:12
PROVIDERS: PCP Family Medicine; Visit Provider Family Medicine
DX: R10.11 Right upper quadrant pain (principal)
CPT/HCPCS: 76700

== ENCOUNTER → 2021-09-01 12:09 | Outpatient (BNVA) | payer OTHER, SELFPAY | PROVIDERS: PCP Family Medicine; Visit Provider Family Medicine | DX: E11.9 Type 2 diabetes mellitus without complications; R53.83 Other fatigue; M25.50 Pain in unspecified joint; K58.1 Irritable bowel syndrome with constipation; J44.9 Chronic obstructive pulmonary disease, unspecified; E78.5 Hyperlipidemia, unspecified; F17.210 Nicotine dependence, cigarettes, uncomplicated | CPT/HCPCS: 80053; 80061; 82306; 82607; 83036; 83540; 84443; 84550; 85651; 86160; 86162; 86235; 86255; 86376; 86431 ==

== ENCOUNTER → 2021-09-15 08:45 | Outpatient (BNVA) | payer OTHER, SELFPAY | PROVIDERS: PCP Family Medicine; Visit Provider Family Medicine | DX: R53.83 Other fatigue (principal); E53.8 Deficiency of other specified B group vitamins | CPT/HCPCS: 84439; 84443; 84481 ==

== ENCOUNTER → 2021-11-04 12:20 | Outpatient (BNVA) | payer OTHER, SELFPAY | PROVIDERS: PCP Family Medicine; Referring Provider Family Medicine; Visit Provider Internal Medicine | DX: M25.50 Pain in unspecified joint (principal); R53.83 Other fatigue; K58.1 Irritable bowel syndrome with constipation; R79.89 Other specified abnormal findings of blood chemistry; E11.9 Type 2 diabetes mellitus without complications; J44.9 Chronic obstructive pulmonary disease, unspecified; L40.9 Psoriasis, unspecified; M46.1 Sacroiliitis, not elsewhere classified | CPT/HCPCS: 36415; 72202; 73120; 73502; 73522; 73560; 80053; 82533; 82550; 82784; 83516; 84155; 84165; 85025; 86200; 86618; 86666; 86704; 86757; 86803; 87340 ==

== ENCOUNTER → 2021-11-11 07:58 | Outpatient (BNVA) | payer OTHER, SELFPAY | PROVIDERS: PCP Family Medicine; Visit Provider Internal Medicine | DX: M25.50 Pain in unspecified joint (principal); R53.83 Other fatigue; M53.3 Sacrococcygeal disorders, not elsewhere classified; D72.829 Elevated white blood cell count, unspecified | CPT/HCPCS: 72100 ==

== ENCOUNTER → 2022-01-14 09:42 | Outpatient (BNVA) | payer OTHER, SELFPAY | PROVIDERS: PCP Family Medicine; Visit Provider Nurse Practitioner Family | DX: R05.9 Cough, unspecified (principal) | CPT/HCPCS: 71046 ==

== ENCOUNTER → 2022-02-22 16:51 | Outpatient (BNVA) | payer OTHER, SELFPAY | PROVIDERS: PCP Family Medicine; Visit Provider Nurse Practitioner Family | DX: J44.1 Chronic obstructive pulmonary disease with (acute) exacerbation (principal) | CPT/HCPCS: 71046; 80053; 85025 ==

== ENCOUNTER 2022-03-09 06:34 | Outpatient (CLI) | payer OTHER, SELFPAY ==
--- NOTE | 2022-03-09 07:00 | CT_ITS ---
WS: [id number] CT CHEST WITH INTRAVENOUS CONTRAST HISTORY: Pneumonia, COPD. TECHNIQUE: Contiguous 5 mm axial imaging performed on the thorax. Coronal and sagittal reformats are submitted. All CT scans at [facility] use at least one of these dose optimization techniques: automated exposure control; mA and/or kV adjustment per patient size (includes targeted exams where dose is matched to clinical indication); or iterative reconstruction. CONTRAST: Omnipaque 350; 95 mL IV. DLP: 675.66 mGy.cm COMPARISON: 03/14/2021 and chest radiograph 02/22/2022 Lungs and central airway: Mildly hyperinflated lungs. Bilateral scattered groundglass opacifications and interstitial thickening. Overall significantly improved since 03/14/2021. Additional areas of sub segmental atelectasis in the lingula and RIGHT middle lobe. No mass or nodule. Pleura: Normal. No pleural effusion. Heart and pericardium: Mild cardiomegaly. Mediastinum and jagdish: Mildly prominent lymphoid tissue in the hilar regions and paratracheal. No enla rging lymph nodes. Mildly reactive lymphadenopathy is likely. Vessels: Mild atherosclerosis aorta. Normal size pulmonary artery. Chest wall and lower neck: No soft tissue masses. Upper abdomen: Hepatic steatosis. Normal adrenal glands. Osseous structures: Mild anterior wedging of several contiguous mid thoracic vertebral bodies. No jasen tructive rib lesions. CT/CT chest w con* [id number] IMPRESSION: 1. Subsegmental atelectasis in the lingula and RIGHT middle lobe. No pneumonia . 2. Scattered groundglass opacifications and interstitial thickening with pulmo nary hyperexpansion. Probably all related to patient's chronic interstitial jh g disease. Superimposed pneumonitis may appear similar. Overall improved since the prior study of 03/14/2021. 3. Hepatic steatosis. 4. No new or enlarging lymph nodes since 03/14/2021.
[2022-03-09] MEDS: iohexol 350 mg/mL 100 mL Btl IV (07:06)
== END 2022-03-09 06:35 | disposition home or self-care (01) ==
LOC: RAD 06:35
PROVIDERS: PCP Family Medicine; Visit Provider Nurse Practitioner Family
DX: J18.9 Pneumonia, unspecified organism (principal); J44.9 Chronic obstructive pulmonary disease, unspecified; J98.11 Atelectasis; K76.0 Fatty (change of) liver, not elsewhere classified
CPT/HCPCS: 71260; 85025

== ENCOUNTER → 2022-08-06 10:43 | Outpatient (BNVA) | payer OTHER, SELFPAY | PROVIDERS: PCP Family Medicine; Visit Provider Nurse Practitioner Family | DX: E11.65 Type 2 diabetes mellitus with hyperglycemia (principal); R79.89 Other specified abnormal findings of blood chemistry | CPT/HCPCS: 80053; 80061; 81000; 82306; 82607; 83036; 83735; 84443; 85025 ==

== ENCOUNTER 2022-10-05 11:30 | Outpatient (CLI) | payer OTHER, SELFPAY ==
--- NOTE | 2022-10-05 11:49 | USCV_ITS ---
Ana Lilia Joseph Age: 52 Gender: F : 1970 Exam Date: 10/05/2022 12:05 Ordering Phys: Hyacinth Enrique [employer] Technologist: DEYANIRA [place] [facility] [place]: RT LEG PAIN HISTORY: RIGHT LEG PAIN PROCEDURES: Venous duplex imaging was performed in bilateral lower extremities. The following venous structures were evaluated: common femoral vein, profunda vein, proximal portion of the greater saphenous vein, superficial femoral vein, and the popliteal vein. In addition, the posterior tibial and peroneal trunk were evaluated. Serial compression, augmentation maneuvers, and spectral Doppler flow evaluation were performed. FINDINGS: No evidence of DVT seen in any vessel visualized at this time. CONCLUSIONS No evidence of right lower extremity DVT. No evidence of left lower extremity DVT. Isaac Parkinson MD (Electronically Signed) Final Date: 05 Oct 2022 15:30 S
== END 2022-10-05 11:31 | disposition home or self-care (01) ==
PROVIDERS: PCP Family Medicine; Visit Provider Nurse Practitioner Family
DX: M79.604 Pain in right leg (principal)
CPT/HCPCS: 93970